=== PATIENT | male | born 1955 | race Caucasian/White ===

== ENCOUNTER 2018-07-24 08:00 | Day surgery (SDC) | payer BC, OTHER ==
[~2018-07-24] VITALS: Ht 182.9 cm; Wt 100.0 kg
[2018-07-24] MEDS ORDERED: SODIUM CHLORIDE 0.9% 1,000 ML IV SCH (08:34)
[2018-07-24 08:38] VITALS: BP 178/99
[2018-07-24] MEDS ORDERED: ATOR80TA PO (08:46)
[2018-07-24] MEDS ORDERED: LORA-247 PO (08:46)
[2018-07-24] MEDS ORDERED: ASPI-496 PO (08:46)
[2018-07-24] MEDS ORDERED: MULT-204 PO (08:46)
[2018-07-24] MEDS ORDERED: LISI-167 PO (08:46)
[2018-07-24] MEDS ORDERED: MIDAZOLAM 1 MG/ML, 5ML ONE ×3 (09:46→13:33)
[2018-07-24] MEDS ORDERED: ISOPROTERENOL 0.2MG/ML, 5ML ONE (09:47)
[2018-07-24] MEDS ORDERED: LIDOCAINE 1%, 20ML ONE ×2 (09:47→13:06)
[2018-07-24] MEDS ORDERED: FENTANYL PF 250 MCG/5ML ONE ×2 (09:47→13:33)
[2018-07-24] MEDS ORDERED: HEPARIN 1,000 UNITS/ML, 10ML ONE (13:10)
[2018-07-24] MEDS ORDERED: ACETAMINOPHEN 325 MG TABLET PO PRN (15:00)
[2018-07-24] MEDS ORDERED: ACETAMINOPHEN 325 MG TABLET ONE (15:26)
[2018-07-24] MEDS ORDERED: ATORVASTATIN 80 MG TABLET PO SCH (21:00)
[2018-07-25] MEDS ORDERED: LISINOPRIL 10 MG TABLET PO SCH (09:00)
[2018-07-25] MEDS ORDERED: LORATADINE 10 MG TABLET PO SCH (09:00)
[2018-07-25] MEDS ORDERED: ASPIRIN 81 MG TABLET EC PO SCH (09:00)
[2018-07-25] MEDS ORDERED: MULTIVITAMINS/MINERALS TABLET PO SCH (09:00)
== END 2018-07-24 20:07 | disposition home or self-care (01) ==
LOC: CACL 08:00 → 5SO 17:01 → CACL 20:07
PROVIDERS: ATTEND Internal Medicine Cardiovascular Disease
DX: I49.3 Ventricular premature depolarization (principal); I08.3 Combined rheumatic disorders of mitral, aortic and tricuspid valves; I10 Essential (primary) hypertension; E78.5 Hyperlipidemia, unspecified; Z79.82 Long term (current) use of aspirin; Z79.899 Other long term (current) drug therapy; Z88.0 Allergy status to penicillin
CPT/HCPCS: 85347; 93308; 93454; 93613; 93621; 93653; 99156; 99157; C1730; C1732; C1760; C1766; C1769; C1894; J1644; J2250; J3010; Q9967; G0378